=== PATIENT | male | born 1970 | race Caucasian/White ===

== ENCOUNTER → 2018-09-23 | Outpatient (CLI) | payer OTHER ==
[~2018-09-23] MED LIST: ASPI-482 PO; BUPR100T6 PO; CYCL10TA2 PO; IBUP200T58 PO; RANI300T3 PO
--- NOTE | 2018-09-23 11:40 | KCIC ---
MR of the left knee HISTORY:Se left knee pain. Prior surgery 2013. Rule out pop 2 weeks ago. TECHNIQUE: Routine multiplanar sequences are obtained. FINDINGS: The medial meniscus is small and blunted, greatest at the posterior horn. Findings compatible with degenerative tear versus prior meniscectomy, or combination of both. No evidence of lateral meniscal tear. Anterior cruciate ligament is thick with some hyperintense signal compatible with degeneration. No evidence of acute rupture. Milder cystic-type change at the femoral attachment and tibial attachment of the ligament. Posterior cruciate ligament intact. Medial collateral ligament intact. Iliotibial band unremarkable. Fibular collateral ligament, biceps femoris tendon and popliteus tendon are intact. Mild thickening of the proximal patellar tendon with increased signal compatible with tendinosis and a very small partial tear at the patellar attachment. Quadriceps tendon intact. Moderate joint effusion. Mild chondromalacia of the patella. Severe cartilage loss at the medial joint compartment with subchondral bone exposure and flattening with small cysts. Mild degenerative changes at the lateral joint. There is an ovoid body measuring 15 mm diameter just posterior to the intracondylar notch compatible with an osteochondral loose body. No acute fracture or aggressive bone destruction. No significant Tobar's cyst. Mild edema along the anterior knee, particularly at the level of the proximal patellar tendon. IMPRESSION: 1. Small distorted medial meniscus compatible with prior tear and/or meniscectomy. 2. Primary osteoarthritis, particularly severe at the medial compartment. 3. Posterior osteochondral loose body. 4. Anterior cruciate ligament thickening and signal compatible with degeneration. No acute rupture. 5. Proximal patellar tendinosis with a very small partial tear at the patellar attachment. Electronically signed by: Gadiel Bazzi MD (09/23/2018 11:37 AM) [id number]
== END | disposition home or self-care (01) ==
LOC: KCIC MRI 08:38
PROVIDERS: ATTEND Nurse Practitioner Family
DX: S86.812A Strain of other muscle(s) and tendon(s) at lower leg level, left leg, initial encounter (principal); M17.12 Unilateral primary osteoarthritis, left knee; M22.42 Chondromalacia patellae, left knee; M25.462 Effusion, left knee; X58.XXXA Exposure to other specified factors, initial encounter; Y93.89 Activity, other specified; Y92.89 Other specified places as the place of occurrence of the external cause; Y99.8 Other external cause status
CPT/HCPCS: 73721